=== PATIENT | male | born 1965 | race Caucasian/White ===

== ENCOUNTER 2019-01-23 14:17 | Emergency (ER) | payer SELFPAY ==
[~2019-01-23] VITALS: Ht 170.1 cm; Wt 77.1 kg
[2019-01-23] MEDS ORDERED: Motrin,Rufen800 MG PO (14:32)
== END 2019-01-23 14:42 | disposition home or self-care (01) ==
LOC: ED 14:17
DX: M70.21 Olecranon bursitis, right elbow (principal); Y93.89 Activity, other specified; Y92.89 Other specified places as the place of occurrence of the external cause; Y99.9 Unspecified external cause status